=== PATIENT | male | born 1980 | race Caucasian/White ===

== ENCOUNTER 2017-10-24 20:14 | Emergency (ER) | payer SELFPAY ==
[2017-10-24] MEDS ORDERED: Sodium Chloride 0.9% 1,000 ML IV ONE (20:39)
[2017-10-24] MEDS ORDERED: Ketorolac 30 MG/ML SDV IVPUSH ONE (20:39)
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
[2017-10-24 21:44] LABS: CHLORIDE,CL 107 mmol/L (98-110); SODIUM,NA 142 mmol/L (136-146)
--- NOTE | 2017-10-25 10:27 | CT ---
EXAM DATE: 10/24/17 PATIENT'S AGE: 36 Patient: GEETA CONTRERAS Facility: [place], [place] Site . Site : 1980 Study: CT Head [id number]/29/2017 8:58:07 PM Ordering Physician: Doctor Nevarez Final Report: INDICATION: Near syncopal episode. TECHNIQUE: CT head without i.v. contrast. COMPARISON: None FINDINGS: CSF spaces: Within normal limits for age. Brain parenchyma: The brain parenchyma is normal in appearance with preservation of the irizarry-white differentiation. No sign of mass, hemorrhage, or midline shift seen. Skull base and calvarium: The visualized paranasal sinuses are well aerated. The mastoid air cells are clear. The visualized orbits are grossly unremarkable. No skull fractures are seen. IMPRESSION: 1. No evidence of acute infarction, intracranial hemorrhage, or mass effect seen. Dictated by Spenser Finch MD @ 10/24/2017 9:05:12 PM Dictated by: Spenser Finch MD @ 10/24/2017 21:05:15 (Electronic Signature) Report Signed by Proxy. [facility]
--- NOTE | 2017-10-25 10:29 | CR ---
EXAM DATE: 10/24/17 PATIENT'S AGE: 36 Patient: GEETA CONTRERAS Facility: [place], [place] Site . Site : 1980 Study: XRay Chest [id number]/29/2017 9:04:49 PM Ordering Physician: Doctor Nevarez Final Report: INDICATION: Near syncope. TECHNIQUE: Chest radiograph 2 views COMPARISON: None FINDINGS: Cardiovascular and mediastinum: The heart silhouette is normal in size and morphology. The mediastinum is normal in appearance. Lungs and pleural spaces: Both lungs are unremarkable in appearance. No sign of pleural effusion seen. No pneumothorax is identified. Bones and soft tissues: No significant findings. IMPRESSION: 1. No acute cardiopulmonary disease is seen. Dictated by Spenser Finch MD @ 10/24/2017 9:06:49 PM Dictated by: Spenser Finch MD @ 10/24/2017 21:06:56 (Electronic Signature) Report Signed by Proxy. [email or web address]
== END 2017-10-24 22:09 | disposition home or self-care (01) ==
LOC: MW.ED 20:14
DX: B34.9 Viral infection, unspecified (principal); R53.83 Other fatigue; F17.210 Nicotine dependence, cigarettes, uncomplicated; Z88.0 Allergy status to penicillin
CPT/HCPCS: 36415; 70450; 71020; 80053; 85025; 86308; 87804; 96361; 96374; 99285; J1885; J7040